=== PATIENT | female | born 1985 | race American Indian/Alaskan Native ===

== ENCOUNTER 2019-09-11 15:26 | Outpatient (CLI) | payer BC ==
--- NOTE | 2019-09-14 08:51 | Ultrasound Report ---
RIGHT BREAST ULTRASOUND HISTORY: Right inferior breast area of tenderness and swelling. Patient states it has improved recent ly. COMPARISON: None available, this is a baseline exam. FINDINGS: Targeted ultrasound of the right inferior breast was performed to evaluate the site of repo rted swelling and tenderness. At the 6:00 periareolar location, there is a partially defined area of complicated fluid measuring 1.6 x 1.8 x 1.1 cm. The overall appearance is most suggestive of a develo ping abscess from recent mastitis. IMPRESSION: Right breast area of tenderness and swelling corresponds with a suspected developing abscess measurin g up to 1.8 cm. Recommend antibiotic therapy with a short interval follow-up ultrasound within 2-3 we eks to assess resolution. Should the fluid collection persists at that time, ultrasound-guided aspira tion may be considered. These findings and recommendations were discussed with the patient at the conclusion of the exam by Dat Meléndez BIRADS 3: Probably benign. Signer Name: Erick Meléndez MD Signed: 09/11/2019 4:25 PM Workstation Name: [id number]
== END 2019-09-11 15:27 | disposition home or self-care (01) ==
LOC: US 15:26
PROVIDERS: ATTEND Advanced Practice Midwife
DX: N60.01 Solitary cyst of right breast (principal)